=== PATIENT | female | born 1940 | race Caucasian/White ===

== ENCOUNTER 2016-12-31 13:18 | Emergency (ER) | payer MEDICARE ==
[~2016-12-31] VITALS: Ht 157.5 cm; Wt 70.0 kg
[~2016-12-31 13:18] MED LIST: ARMOUR THYRO90 MG PO; BACTRIM DS1 TAB PO; NO MEDS; PROTONIX40 MG PO; ZOFRAN4 MG/TAB PO
[2016-12-31 14:04] VITALS: BP 137/63
[2016-12-31] MEDS ORDERED: CLINDAMYCIN300 M1 PO (14:08)
[2016-12-31] MEDS ORDERED: BENADRYL 50MG C50 MG PO (14:08)
== END 2016-12-31 14:30 | disposition home or self-care (01) ==
LOC: ED 13:18
DX: T63.461A Toxic effect of venom of wasps, accidental (unintentional), initial encounter (principal); Y92.009 Unspecified place in unspecified non-institutional (private) residence as the place of occurrence of the external cause; R22.31 Localized swelling, mass and lump, right upper limb

== ENCOUNTER 2017-11-12 10:56 | Emergency (ER) | payer MEDICARE ==
[~2017-11-12] VITALS: Ht 157.5 cm; Wt 90.0 kg
[~2017-11-12 10:56] MED LIST changes: +BENADRYL 50MG C50 MG PO; +CLINDAMYCIN300 M1 PO
[2017-11-12] MEDS ORDERED: ARMOUR THYROID60 MG PO (11:14)
[2017-11-12 11:44] LABS: HEMATOCRIT 40.9 % (37.0-47.0); HEMOGLOBIN 13.7 g/dl (12.0-16.0); IMMATURE GRANULOCYTES 0.3 % (0.0-5.0); MEAN CORPUSCULAR HGB 33.5 pG CALC (26.0-32.0); MEAN CORPUSCULAR HGB CONC 33.5 g/L CALC (32.0-36.0); NEUT# 5.25 thou/uL (2.00-7.15); RED BLOOD COUNT 4.09 mill/uL (4.20-5.60); RED CELL DISTRI WIDTH 12.5 % (11.5-15.5)
[2017-11-12 11:54] LABS: ALBUMIN 4.2 g/dL (3.2-5.0); ALKALINE PHOSPHATASE 68 u/l (38-126); AMYLASE 85 u/l (30-110); ANION GAP 14 (6-22 (CALC)); BILIRUBIN, TOTAL 0.8 mg/dL (0.0-1.4); BUN 21 mg/dL (8-23); BUN/CREATININE RATIO 25 (12-20 (CALC)); CARBON DIOXIDE 24 mmol/l (22-30); CHLORIDE 108 mmol/l (95-108); CREATININE 0.8 mg/dL (0.5-1.0); GFR > 60 ML/MIN (>=60 (CALC)); GFR FOR AFR.AMER. > 60 ML/MIN (>=60 (CALC)); LIPASE 94 u/l (23-300); POTASSIUM 4.1 mmol/l (3.5-5.1); SGOT/AST 33 u/l (9-36); SGPT/ALT 33 u/l (11-66); SODIUM 142 mmol/l (137-146); TOTAL PROTEIN 7.3 g/dL (6.3-8.2)
[2017-11-12 12:06] LABS: MYOGLOBIN 34 ng/mL (0 - 62)
[2017-11-12] MEDS ORDERED: PREVPAC PO (13:00)
[2017-11-12 13:12] VITALS: BP 146/72
== END 2017-11-12 13:12 | disposition left against medical advice (07) ==
LOC: ED 10:56
PROVIDERS: Emergency Medicine
DX: R07.9 Chest pain, unspecified (principal); E07.9 Disorder of thyroid, unspecified; K29.70 Gastritis, unspecified, without bleeding; B96.81 Helicobacter pylori [H. pylori] as the cause of diseases classified elsewhere; Z91.19 Patient's noncompliance with other medical treatment and regimen
CPT/HCPCS: S0164

== ENCOUNTER → 2018-06-02 | Outpatient (REF) | payer MEDICARE ==
[~2018-06-02] MED LIST changes: +ARMOUR THYROID60 MG PO; +PREVPAC PO
[2018-06-02 13:57] LABS: HEMATOCRIT 40.9 % (37.0-47.0); HEMOGLOBIN 13.5 g/dl (12.0-16.0); IMMATURE GRANULOCYTES 0.2 % (0.0-5.0); MEAN CELL VOLUME 102.3 fL CALC (80.0-100.0); MEAN CORPUSCULAR HGB 33.8 pG CALC (26.0-32.0); NEUT# 3.12 thou/uL (2.00-7.15); RED CELL DISTRI WIDTH 12.8 % (11.5-15.5)
[2018-06-02 14:05] LABS: ALBUMIN 4.3 g/dL (3.2-5.0); ALKALINE PHOSPHATASE 63 u/l (38-126); BILIRUBIN, TOTAL 0.6 mg/dL (0.0-1.4); BUN 16 mg/dL (8-23); BUN/CREATININE RATIO 18 (12-20 (CALC)); CHLORIDE 104 mmol/l (95-108); CREATININE 0.9 mg/dL (0.5-1.0); GFR > 60 ML/MIN (>=60 (CALC)); GFR FOR AFR.AMER. > 60 ML/MIN (>=60 (CALC)); POTASSIUM 4.3 mmol/l (3.5-5.1); SGOT/AST 26 u/l (9-36); SODIUM 140 mmol/l (137-146); TOTAL PROTEIN 6.7 g/dL (6.3-8.2)
[2018-06-02 14:29] LABS: ANION GAP 8 (6-22 (CALC)); CARBON DIOXIDE 32 mmol/l (22-30)
[2018-06-02 14:36] LABS: TSH, 3RD GENERATION 2.18 uIU/mL (0.47 - 4.68)
== END | disposition home or self-care (01) ==
LOC: LAB 13:11
PROVIDERS: ATTEND Physician Assistant Medical
DX: E03.9 Hypothyroidism, unspecified (principal)

== ENCOUNTER 2021-04-24 19:36 | Emergency (ER) | payer MEDICARE ==
[~2021-04-24] VITALS: Ht 157.5 cm; Wt 82.0 kg
[2021-04-24 21:42] LABS: HEMATOCRIT 39.8 % (37.0-47.0); IMMATURE GRANULOCYTES 0.1 % (0.0-5.0); MEAN CELL VOLUME 102.1 fL CALC (80.0-100.0); MEAN CORPUSCULAR HGB 33.3 pG CALC (26.0-32.0); MEAN CORPUSCULAR HGB CONC 32.7 g/dL CAL (32.0-36.0); NEUT# 4.79 thou/uL (2.00-7.15); RED BLOOD COUNT 3.9 mill/uL (4.20-5.60); RED CELL DISTRI WIDTH 12.4 % (11.5-15.5)
[2021-04-24] MEDS ORDERED: TESSALON PERLE100 MG PO (22:41)
[2021-04-24 23:00] VITALS: BP 175/78
== END 2021-04-24 23:00 | disposition home or self-care (01) ==
LOC: ED 19:36
PROVIDERS: Family Medicine
DX: U07.1 COVID-19 (principal)

== ENCOUNTER 2021-10-08 15:41 | Emergency (ER) | payer MEDICARE ==
[~2021-10-08] VITALS: Ht 157.5 cm; Wt 81.6 kg
[~2021-10-08 15:41] MED LIST changes: +ARMOUR THYRO120 MG PO; +TESSALON PERLE100 MG PO
[2021-10-08 15:54] VITALS: BP 166/71
[2021-10-08 16:01] VITALS: BP 134/61
[2021-10-08 16:23] LABS: URINE BILIRUBIN - DIPSTICK NEGATIVE (NEGATIVE); URINE BLOOD DIPSTICK MODERATE (NEGATIVE); URINE COLOR YELLOW; URINE GLUCOSE - DIPSTICK NEGATIVE (NEGATIVE); URINE KETONE NEGATIVE (NEGATIVE); URINE PROTEIN - DIPSTICK 30 mg/dL (NEG-TRACE); URINE SPECIFIC GRAVITY 1.025; URINE UROBILINOGEN - DIPSTICK 0.2 E.U./dL (0.2)
[2021-10-08 16:26] LABS: URINE LEUK ESTERASE LARGE (NEGATIVE); URINE NITRITE - DIPSTICK POSITIVE (Negative)
[2021-10-08 16:30] VITALS: BP 142/67
[2021-10-08 16:32] LABS: URINE BACTERIA FEW hpf; URINE SQUAMOUS EPITHELIAL CELL FEW EPI/hpf (0-FEW); URINE WBC TNTC WBC/hpf (0-5)
[2021-10-08] MEDS ORDERED: KEFLEX500 MG PO (16:58)
[2021-10-08] MEDS ORDERED: PHENAZOPYRIDIN100 M1 PO (16:58)
[2021-10-08 17:01] VITALS: BP 129/62
[2021-10-08 17:10] VITALS: BP 129/62
[2021-10-08] MEDS ORDERED: DIFLUCAN150 MG PO (17:20)
== END 2021-10-08 17:20 | disposition home or self-care (01) ==
LOC: ED 15:41
PROVIDERS: Nurse Practitioner
DX: N39.0 Urinary tract infection, site not specified (principal); B96.20 Unspecified Escherichia coli [E. coli] as the cause of diseases classified elsewhere; Z87.440 Personal history of urinary (tract) infections

== ENCOUNTER 2022-09-26 14:47 | Emergency (ER) | payer MEDICARE ==
[~2022-09-26] VITALS: Ht 157.5 cm; Wt 74.8 kg
[2022-09-26] VITALS (12 sets, daily range): BP systolic 138–156; BP diastolic 60–102
[~2022-09-26 14:47] MED LIST changes: +DIFLUCAN150 MG PO; +KEFLEX500 MG PO; +PHENAZOPYRIDIN100 M1 PO
== END 2022-09-26 17:44 | disposition left against medical advice (07) ==
LOC: ED 14:47
DX: S00.83XA Contusion of other part of head, initial encounter (principal); S00.31XA Abrasion of nose, initial encounter; S50.811A Abrasion of right forearm, initial encounter; S80.212A Abrasion, left knee, initial encounter; S80.211A Abrasion, right knee, initial encounter; S90.414A Abrasion, right lesser toe(s), initial encounter; W01.0XXA Fall on same level from slipping, tripping and stumbling without subsequent striking against object, initial encounter; Y92.512 Supermarket, store or market as the place of occurrence of the external cause; Z53.29 Procedure and treatment not carried out because of patient's decision for other reasons